=== PATIENT | female | born 1940 | race Caucasian/White ===

== ENCOUNTER 2019-08-07 18:12 | Emergency (ER) | payer MEDICAID ==
[~2019-08-07] VITALS: Ht 154.9 cm; Wt 58.1 kg
[2019-08-07] MEDS ORDERED: AMLO5TAB9 PO (18:29)
[2019-08-07] MEDS ORDERED: ATOR20TA PO (18:29)
[2019-08-07] MEDS ORDERED: LEVO100T10 PO (18:29)
[2019-08-07] MEDS ORDERED: METO-357 PO (18:29)
--- NOTE | 2019-08-07 18:37 | NUR ---
Dr Landry is at bedside, MSE in progress
[2019-08-07] MEDS ORDERED: ONDANSETRON 4 MG/2 ML VIAL ONE (18:44)
[2019-08-07] MEDS ORDERED: IV NORMAL SALINE 1000 ML BAG IV ONE (18:45)
[2019-08-07] MEDS ORDERED: ONDANSETRON 4 MG/2 ML VIAL IV ONE (18:45)
[2019-08-07 19:00] LABS: BASOPHILS % (AUTO) 0.3 % (0.0-2.0); EOSINOPHILS # (AUTO) 0.1 K/uL (0.0-0.7); EOSINOPHILS % (AUTO) 1.9 % (0.0-7.0); HEMATOCRIT 35.9 % (31.2-41.9); HEMOGLOBIN 11.9 g/dL (10.9-14.3); LYMPHOCYTES # (AUTO) 2.2 K/uL (20.0-40.0); LYMPHOCYTES % (AUTO) 41.4 % (20.5-51.5); MEAN CORPUSCULAR HEMOGLOBIN 28.2 uug (24.7-32.8); MEAN CORPUSCULAR HGB CONC 33 g/dL (32.3-35.6); MEAN CORPUSCULAR VOLUME 84.8 fL (75.5-95.3); MONOCYTES # (AUTO) 0.5 K/uL (2.0-10.0); NEUTROPHILS # (AUTO) 2.5 K/uL (1.8-8.9); NEUTROPHILS % (AUTO) 47.4 % (38.5-71.5); PLATELET COUNT (AUTO) 334 K/uL (179-408); RED BLOOD CELL COUNT(AUTO) 4.23 MIL/uL (3.63-4.92); WHITE BLOOD COUNT (AUTO) 5.3 K/uL (3.8-11.8)
--- NOTE | 2019-08-07 19:05 | NUR ---
HAND OFF AND SBAR RECEIVED FR OUTGOING DAY SHIFT RN PT RA HR AT 69 NAD REPORTS LESS DIZZINESS WAITING FOR DIAGNOSTICS
[2019-08-07 19:09] LABS: CREATININE 0.8 mg/dL (0.6-1.3); POTASSIUM 3.7 mmol/L (3.5-5.1)
[2019-08-07 19:14] LABS: BILIRUBIN,DIRECT 0.1 mg/dL (0.0-0.2); BILIRUBIN,TOTAL 0.2 mg/dL (0.2-1.0); TOTAL PROTEIN, SERUM 7.6 g/dL (6.4-8.2)
--- NOTE | 2019-08-07 19:40 | NUR ---
PT BELT TURNER ON THE PHONE WITH TOÑA
--- NOTE | 2019-08-07 19:55 | NUR ---
Patient discharged to home in stable conditon. Written and verbal after care instructions given. Patient verbalizes understanding of instructions. wheelchair towards car but ambulatory upon dc all belongings w/ pt daughter will drive
[2019-08-07 19:57] VITALS: BP 113/73
== END 2019-08-07 19:50 | disposition home or self-care (01) ==
LOC: ER 18:13
DX: R55 Syncope and collapse (principal); E78.5 Hyperlipidemia, unspecified; I10 Essential (primary) hypertension; E03.9 Hypothyroidism, unspecified; Z79.899 Other long term (current) drug therapy
CPT/HCPCS: 36415; 71045; 80048; 80076; 83690; 84443; 84484; 85025; 85730; 87400; 93005; 96361; 96374; 99284; J2405; 70030-TC; A4663; J7030